=== PATIENT | male | born 1975 ===

== ENCOUNTER 2024-01-23 05:20 | Day surgery (SDC) | payer OTHER ==
[2024-01-15 14:09] VITALS: BP 130/85
[~2024-01-23] VITALS: Ht 177.8 cm; Wt 100.2 kg
[~2024-01-23 05:20] MED LIST: COZAAR50 MG PO; HYDRODIURIL12.5 MG PO
[2024-01-23] MEDS ORDERED: ENOXAPARIN SODIUM 40 MG/0.4 ML SYRINGE SUBCUTANEO ONE (08:11)
[2024-01-23] MEDS ORDERED: CEFTRIAXONE SODIUM 2,000 MG VIAL ONE (08:12)
[2024-01-23] MEDS ORDERED: BUPIVACAINE HCL/MPF 0.5% 30ML VIAL ONE (10:09)
[2024-01-23] MEDS ORDERED: SUGAMMADEX SODIUM 200 MG/2 ML VIAL IV ONE (10:38)
[2024-01-23] MEDS ORDERED: METRONIDAZOLE/SODIUM CHLORIDE 500 MG/100 ML PIGGYBACK IV SCH (11:00)
[2024-01-23] MEDS ORDERED: NEURONTIN300 MG PO (11:42)
[2024-01-23] MEDS ORDERED: POLY119PG PO (11:42)
[2024-01-23] MEDS ORDERED: PERCOCET 5-3251 EACH PO (11:42)
[2024-01-23] MEDS ORDERED: CELEBREX200MG PO (11:42)
== END 2024-01-23 13:40 | disposition home or self-care (01) ==
LOC: CIR.AMB 05:20
PROVIDERS: ATTEND Surgery
DX: K42.0 Umbilical hernia with obstruction, without gangrene (principal); I10 Essential (primary) hypertension
CPT/HCPCS: 49594; C1781